=== PATIENT | male | born 1950 | race Caucasian/White ===

== ENCOUNTER 2023-07-18 09:41 | Outpatient (CLI) | payer MEDICARE ==
[2023-07-18 11:37] LABS: Hematocrit 40.6 % (38.8-50.0); Hemoglobin 13.3 g/dL (13.5-17.5); Mean Corpuscular HGB CONC 32.8 g/dL (32.0-36.0); Mean Corpuscular Hemoglobin 29.2 pg (27.0-33.0); Mean Corpuscular Volume 89.2 fl (81.2-95.1); Mean Platelet Volume 9.8 fl (7.4-10.4); Platelet Count 238 10x3/uL (150-450); RBC Distribution Width 13.7 % (11.5-14.5); Red Blood Cell (RBC) Count 4.55 10x6/uL (4.32-5.72); White Blood Cell (WBC) Count 6.6 10x3/uL (3.5-10.5)
[2023-07-18 12:06] LABS: Anion Gap 16 mmol/L (10-20); BUN (Urea Nitrogen) 17 mg/dL (8.4-25.7); Calc. Creatinine Clearance 0 mL/min (70-130); Calcium 9.2 mg/dL (7.8-10.44); Carbon Dioxide 19 mmol/L (23-31); Chloride 105 mmol/L (98-107); Estimated GFR 92; Glucose 114 mg/dL (83-110); Potassium 4.8 mmol/L (3.5-5.1); Sodium 135 mmol/L (136-145)
[2023-07-18 15:52] LABS: INR-International Normal Ratio 1.1; PTT 28.3 sec (22.0-33.0); Prothrombin Time 11.3 sec (9.5-12.1)
[2023-07-18 20:17] LABS: Hemoglobin A1c 6.7 % (4.0-6.0)
== END 2023-07-18 09:42 | disposition home or self-care (01) ==
LOC: CSHLAB 09:41
PROVIDERS: ATTEND Orthopaedic Surgery
DX: Z01.818 Encounter for other preprocedural examination (principal)
CPT/HCPCS: 80048; 83036; 85027; 85610; 85730; 86850; 86900; 86901; 93005; 93010

== ENCOUNTER 2023-07-28 05:35 | Inpatient (IN) | payer MEDICARE ==
[2023-07-28] MEDS ORDERED: Phenylephrine 40 MG/NS 250 ML 250 ML ONE (06:19)
[2023-07-28] MEDS ORDERED: Sevoflurane 250 ML INH ANEST BOTTLE ONE (06:19)
[2023-07-28] MEDS ORDERED: Lidocaine 4% Topical Sol 50 ML BOT ONE (06:19)
[2023-07-28] MEDS ORDERED: Propofol 1,000 MG/100 ML VIAL IV ONE ×2 (06:19→09:53)
[2023-07-28] MEDS ORDERED: KETAMINE 100 MG/ML (5ML VIAL) ONE (06:19)
[2023-07-28] MEDS ORDERED: Lidocaine 1% PF 5 ML VIAL ONE (06:30)
[2023-07-28] MEDS ORDERED: Ondansetron PF 4 MG/2 ML Vial ONE (06:30)
[2023-07-28] MEDS ORDERED: PROPOFOL 20 ML ONE (06:30)
[2023-07-28] MEDS ORDERED: Dexamethasone 20 MG/5 ML VIAL ONE (06:30)
[2023-07-28] MEDS ORDERED: Fentanyl 250 MCG/5 ML VIAL ONE (06:30)
[2023-07-28] MEDS ORDERED: Rocuronium Bromide 10 MG/ML (10ML VIAL) ONE (06:30)
[2023-07-28] MEDS ORDERED: Midazolam HCl 2 mg/2 ml Vial ONE (06:31)
[2023-07-28] MEDS ORDERED: PHENYLEPHRINE-NS 100 MCG/ML 10 ML SYRINGE ONE (06:31)
[2023-07-28] MEDS ORDERED: ePHEDrine Sulfate 50 MG/10 ML VIAL ONE (06:31)
[2023-07-28] MEDS ORDERED: Famotidine/PF 20 mg/2ml Vial ONE (06:40)
[2023-07-28] MEDS ORDERED: EPINEPHrine 1 MG/ML VIAL ONE (06:48)
[2023-07-28] MEDS ORDERED: Bupivacaine 0.25% HCL 30 ML VIAL ONE (06:48)
[2023-07-28] MEDS ORDERED: CEFAZOLIN 2 GM VIAL ONE (07:00)
[2023-07-28] MEDS ORDERED: Acetaminophen 325 MG TAB PO PRN (11:35)
[2023-07-28] MEDS ORDERED: Communication Order-Pharmacy FS SCH (11:45)
[2023-07-28] MEDS ORDERED: fentaNYL 50 mcg/mL 1 mL Vial ONE ×2 (12:02→12:18)
[2023-07-28] MEDS: HYDROcodone/Acetaminophen 10/325 mg Tablet PO PRN (13:25)
[2023-07-28] MEDS: Morphine 4 MG/ML VIAL SLOW IVP PRN (13:41)
[2023-07-28] MEDS: CEFAZOLIN 2 GM in Sodium Chloride 0.9% 100 ML IVPB SCH (14:08)
[2023-07-28 14:19] VITALS: BMI 40.4
[2023-07-28] MEDS: TETANUS, DIPHTHERIA TOX,ADULT (TDVAX) 0.5 ML VIAL IM ONE (16:18)
[2023-07-28] MEDS: metFORMIN 500 MG TAB PO SCH (16:20)
[2023-07-28] MEDS ORDERED: Glucagon 1 MG/ML KIT IM PRN (19:06)
[2023-07-28] MEDS ORDERED: Dextrose 5% in Water 1,000 ML IV PRN (19:06)
[2023-07-28] MEDS ORDERED: Dextrose 50% Abboject 50 ML SYRINGE SLOW IVP PRN (19:06)
[2023-07-28] MEDS ORDERED: HumaLOG 300 UNITS/3 ML VIAL SC PRN (19:06)
[2023-07-28] MEDS: HYDROcodone/Acetaminophen 10/325 mg Tablet PO SCH (19:39)
[2023-07-28] MEDS: Lisinopril 10 MG TAB PO SCH (20:45)
[2023-07-28] MEDS: Aspirin 81 mg Enteric Coated Tablet PO SCH (20:45)
[2023-07-28] MEDS: dilTIAZem CD 120 MG CAP PO SCH (20:46)
[2023-07-28] MEDS: Rosuvastatin 20 MG TAB PO SCH (20:46)
[2023-07-28] MEDS: Montelukast Sodium 10 mg Tablet PO SCH (20:46)
[2023-07-28] MEDS: ALPRAZolam 1 MG TAB PO SCH (20:46)
[2023-07-28] MEDS: Flecainide 50 MG TAB PO SCH (20:46)
[2023-07-28] MEDS: Mometasone 100 MCG/PUFF (1 INHALER) INH SCH (20:50)
[2023-07-28] MEDS: Ipratropium/Albuterol 3 ML NEB NEB SCH (20:50)
[2023-07-28] MEDS ORDERED: ROFLUMILAST 500 MCG PO SCH (21:00)
[2023-07-29 09:41] LABS: #Neutrophils 11.4 10x3/uL (1.5-8.4); %Basophils 0.1 % (0.0-2.0); %Lymphocytes 8.9 % (18.0-47.0); %Monocytes 7.2 % (0.0-10.0); %Neutrophils 83.3 % (40.0-75.0); Hemoglobin 14.6 g/dL (13.5-17.5); Mean Corpuscular HGB CONC 33.2 g/dL (32.0-36.0); Mean Corpuscular Volume 87.3 fl (81.2-95.1); Mean Platelet Volume 9.6 fl (7.4-10.4); Platelet Count 277 10x3/uL (150-450); RBC Distribution Width 13.8 % (11.5-14.5); Red Blood Cell (RBC) Count 5.04 10x6/uL (4.32-5.72); White Blood Cell (WBC) Count 13.7 10x3/uL (3.5-10.5)
[2023-07-29 09:51] LABS: Anion Gap 18 mmol/L (10-20); BUN (Urea Nitrogen) 27 mg/dL (8.4-25.7); Calc. Creatinine Clearance 86 mL/min (70-130); Calcium 8.5 mg/dL (7.8-10.44); Carbon Dioxide 18 mmol/L (23-31); Chloride 104 mmol/L (98-107); Estimated GFR 51; Glucose 218 mg/dL (83-110); Potassium 4.9 mmol/L (3.5-5.1); Sodium 135 mmol/L (136-145)
[2023-07-29] MEDS: Ezetimibe 10 MG TAB PO SCH (09:52)
[2023-07-29] MEDS: Pioglitazone HCl 45 MG TAB PO SCH (09:52)
[2023-07-29] MEDS: Sodium Chloride 0.9% 1,000 ML IV SCH (11:42)
[2023-07-29] MEDS: HumaLOG 300 UNITS/3 ML VIAL SC PRN (13:41)
[2023-07-30] MEDS: Ventolin HFA Inhaler 60 PUFF INHALER INH PRN (07:30)
[2023-07-30 08:45] LABS: Anion Gap 16 mmol/L (10-20); BUN (Urea Nitrogen) 35 mg/dL (8.4-25.7); Calc. Creatinine Clearance 112 mL/min (70-130); Calcium 8.4 mg/dL (7.8-10.44); Carbon Dioxide 18 mmol/L (23-31); Chloride 104 mmol/L (98-107); Estimated GFR 69; Glucose 119 mg/dL (83-110); Potassium 4.9 mmol/L (3.5-5.1); Sodium 133 mmol/L (136-145)
[2023-07-30 08:46] LABS: Hematocrit 40.2 % (38.8-50.0); Mean Corpuscular HGB CONC 32.3 g/dL (32.0-36.0); Mean Corpuscular Hemoglobin 28.8 pg (27.0-33.0); Mean Corpuscular Volume 88.9 fl (81.2-95.1); Mean Platelet Volume 10.1 fl (7.4-10.4); Platelet Count 234 10x3/uL (150-450); Red Blood Cell (RBC) Count 4.52 10x6/uL (4.32-5.72); White Blood Cell (WBC) Count 13.3 10x3/uL (3.5-10.5)
[2023-07-30 09:31] LABS: Band 5 % (5-11); Lymphocytes 31 % (21-51); Monocytes 8 % (0-10)
[2023-07-30 09:32] LABS: Neutrophil 56 % (42-75)
[2023-07-30 09:33] LABS: RBC Morph Comment Within Normal Limits
[2023-07-30 09:34] LABS: Platelet Adequacy Comment Appears Adequate; Platelet Clumps MODERATE
[2023-07-30 09:35] LABS: MDiff Complete? YES
[2023-07-31 04:52] LABS: #Monocytes 0.7 10x3/uL (0.0-1.1); #Neutrophils 4.8 10x3/uL (1.5-8.4); %Basophils 0.1 % (0.0-2.0); %Eosinophils 0.3 % (0.0-6.0); %Lymphocytes 24.7 % (18.0-47.0); %Monocytes 9.8 % (0.0-10.0); %Neutrophils 64.7 % (40.0-75.0); Hematocrit 35.2 % (38.8-50.0); Hemoglobin 11.3 g/dL (13.5-17.5); Mean Corpuscular HGB CONC 32.1 g/dL (32.0-36.0); Mean Corpuscular Hemoglobin 28.4 pg (27.0-33.0); Mean Corpuscular Volume 88.4 fl (81.2-95.1); Mean Platelet Volume 9.5 fl (7.4-10.4); Platelet Count 202 10x3/uL (150-450); RBC Distribution Width 13.8 % (11.5-14.5); Red Blood Cell (RBC) Count 3.98 10x6/uL (4.32-5.72); White Blood Cell (WBC) Count 7.4 10x3/uL (3.5-10.5)
[2023-07-31 04:55] LABS: Anion Gap 13 mmol/L (10-20); BUN (Urea Nitrogen) 28 mg/dL (8.4-25.7); Calc. Creatinine Clearance 152 mL/min (70-130); Calcium 8.1 mg/dL (7.8-10.44); Carbon Dioxide 21 mmol/L (23-31); Chloride 105 mmol/L (98-107); Estimated GFR 94; Glucose 124 mg/dL (83-110); Potassium 4.5 mmol/L (3.5-5.1); Sodium 134 mmol/L (136-145)
[2023-07-31] MEDS: Senokot S 8.6-50 MG TAB PO SCH ×2 (08:42→20:33)
[2023-07-31] MEDS ORDERED: Cyclobenzaprine 10 MG TAB PO PRN (15:39)
[2023-07-31] MEDS: Cyclobenzaprine 10 MG TAB PO SCH (16:22)
[2023-08-01] MEDS ORDERED: Polyethylene Glycol 3350 17 GM Packet PO SCH (10:00)
[2023-08-01 12:50] VITALS: BP 117/56; TEMP 98.1
[2023-08-02] MEDS ORDERED: Polyethylene Glycol 3350 17 GM Packet PO SCH (09:00)
== END 2023-08-01 13:50 | DRG 454 ==
LOC: CSHSDC 05:35 → CSHTELE 13:01
PROVIDERS: ADMIT Orthopaedic Surgery; ATTEND Family Medicine
PROC: 0SG00AJ Fusion of Lumbar Vertebral Joint with Interbody Fusion Device, Posterior Approach, Anterior Column, Open Approach (ICD-10-PCS; principal; 2023-07-28)
PROC: 0SG0071 Fusion of Lumbar Vertebral Joint with Autologous Tissue Substitute, Posterior Approach, Posterior Column, Open Approach (ICD-10-PCS; 2023-07-28)
PROC: 00NY0ZZ Release Lumbar Spinal Cord, Open Approach (ICD-10-PCS; 2023-07-28)
PROC: 3E033XZ Introduction of Vasopressor into Peripheral Vein, Percutaneous Approach (ICD-10-PCS; 2023-07-28)
DX: M54.16 Radiculopathy, lumbar region (principal); N17.9 Acute kidney failure, unspecified; E11.9 Type 2 diabetes mellitus without complications; F43.10 Post-traumatic stress disorder, unspecified; E78.2 Mixed hyperlipidemia; Z98.41 Cataract extraction status, right eye; Z90.49 Acquired absence of other specified parts of digestive tract; Z98.890 Other specified postprocedural states; Z79.899 Other long term (current) drug therapy; Z88.0 Allergy status to penicillin; J44.9 Chronic obstructive pulmonary disease, unspecified; I48.91 Unspecified atrial fibrillation; Z79.4 Long term (current) use of insulin; M41.56 Other secondary scoliosis, lumbar region
CPT/HCPCS: 36415; 36416; 72100; 80048; 85025; 86850; 86900; 86901; 94640; 94664; 94760; 94762; C1713; C1889; J0171; J0665; J1100; J1815; J2250; J2270; J2405; J2704; J3010; J3490; J7050; S0028